=== PATIENT | male | born 1970 | race Caucasian/White ===

== ENCOUNTER → 2021-02-23 14:00 | Outpatient (CLI) | payer OTHER, SELFPAY ==
[2021-02-23 15:58] LABS: COVID19 -Nasal RAPID Negative (Negative)
== END ==
PROVIDERS: Visit Provider Physician Assistant
DX: Z01.812 Encounter for preprocedural laboratory examination (principal); Z20.822 Contact with and (suspected) exposure to COVID-19
CPT/HCPCS: 87635

== ENCOUNTER 2021-02-25 11:57 | Day surgery (SDC) | payer OTHER, SELFPAY ==
[2021-02-25] VITALS (13 sets, daily range): BP systolic 99–127; BP diastolic 67–87; PULSE 50–63; RESP 12–18; TEMP 35.9–36.5; O2SAT 95–100; BMI 25.1
--- NOTE | 2021-02-25 | PATH_ITS ---
[facility] Accession Number: [id number] . 01 Material submitted: . esophagus, E-G Junction - G-JUNCTION NODULAR . 01 Clinical history: . SDC ESOPHAGITIS . 02 Diagnosis: Gastroesophageal Junction, Nodular, Biopsy: Columnar mucosa with mild foveolar hyperplasia, consistent with hyperplastic polyp. Negative for intestinal metaplasia. Negative for dysplasia and malignancy. [facility] 03/02/2021 1442 Local . 02 Electronically signed: . Mary Ellen Ellis MD, Pathologist NPI- [id number] . 01 Gross description: . The specimen is received in formalin, labeled GE junction nodular esophagitis and consists of two osman-pink fragments of soft tissue measuring 0.4 x 0.3 x 0.2 cm in aggregate. The specimen is entirely submitted in cassette A1. ([id number]) /V 02/26/2021 1356 Local . 02 Pathologist provided ICD-10: Z12.11 . 02 CPT . 608676 Performed at: 01 [facility] [address] [id number] MD Demetrius Bolden MD Phone: [phone] Performed at: 02 [facility] [address] [place], [place] [id number] MD Mary Ellen Ellis MD Phone: [phone]
[2021-02-25] MEDS: SODIUM CHLORIDE 0.9% 1,000 ML 100 ML IV (12:33)
--- NOTE | 2021-02-25 12:38 | PM.HP.1 ---
History of Present Illness History of Present Illness Date Patient Seen: 02/25/21 Chief complaint: SDC Narrative: Abnormal PET scan showing uptake in the distal esophagus and need for colorectal cancer screening Patient History Family & Social History Social History: household members spouse Tobacco & Substance use: Smoking Status Never smoker alcohol intake current alcohol intake frequency a few times a month Substance Use Type does not use Meds Home Medications and Allergies Home Medications Medication Instructions Recorded Confirmed Type lisinopril 10 mg PO DAILY 02/25/21 02/25/21 History Allergies Allergy/AdvReac Type Severity Reaction Status Date / Time No Known Drug Allergies Allergy Verified 02/25/21 12:10 Exam Vital Signs (past 8 hours): - 02/25/21 12:23 Temperature 97.5 F L Pulse Rate 63 Respiratory Rate 16 Blood Pressure 127/87 Pulse Oximetry 95 Oxygen Delivery Method Room Air Narrative Exam Narrative: Oropharynx free of lesions Chest clear to auscultation percussion Cardiac exam reveals no S3 or murmur Assessment & Plan Assessment & Plan narrative: Abnormal PET scan done for sarcoidosis with finding of uptake in the distal esophagus rule out significant esophagitis. Need for colorectal cancer screening Risks benefits alternatives been explained. EGD and colonoscopy will be performed today.
--- NOTE | 2021-02-25 12:39 | PM.OP.ENDO ---
Operative Date/Time/Diagnoses Date of procedure: 02/25/21 Pre-op diagnosis: No more see indication and findings Procedure & Clinicians Study performed: EGD and colonoscopy Same procedure as scheduled: Yes Indications: Abnormal uptake on PET scan in distal esophagus. Need for colorectal cancer screening Surgeon: Hali Dillon Procedure Notes Procedure in detail: After informed consent was obtained the patient was placed in left lateral decubitus position. The video upper scope was placed into the oropharynx and with the patient's help swelled into the esophagus. The esophagus stomach duodenum were carefully examined. On withdrawal retroflexed view of the GE junction was performed. The scope was removed. The patient tolerated procedure well. At this point the patient was turned to the colonoscope substituted. He was introduced the rectum slowly advanced to cecum. Preparation was good. On slow withdrawal mucosa was carefully examined. The scope was removed. The patient tolerated procedure well. Blood loss none Complications none Sedation Total sedation time 24 minutes Versed 9 mg fentanyl 100 micro g IV titration Findings EGD 1. Circumferential esophagitis at the GE junction. Several areas of superficial ulceration seen. On the anterior aspect was an area that was somewhat nodular probably from reparative change. Biopsies were taken to rule out neoplasia. 2. Not evident initially but on further examination 2-3 cm sliding hiatal hernia is present 3. Otherwise negative stomach 4. Normal duodenal bulb and sweep Will specifically follow-up on the biopsies of his esophagus. In the meantime since he does have some reflux symptoms and this is so significant he should be on proton pump inhibitors for at least 2-3 months before having another upper endoscopy to check for complete healing. Colonoscopy 1. Completely normal colonoscopy to cecum with rare small diverticula and small internal hemorrhoids.
[2021-02-25] MEDS: MIDAZOLAM 5 MG/5 ML VIAL IV (13:38)
[2021-02-25] MEDS: fentaNYL 250 MCG/5 ML INJ IV (13:38)
== END 2021-02-25 15:09 | disposition home or self-care (01) ==
PROVIDERS: PCP Internal Medicine; Referring Provider Internal Medicine Gastroenterology; Visit Provider Internal Medicine Gastroenterology
PROC: 0DJ08ZZ Inspection of Upper Intestinal Tract, Via Natural or Artificial Opening Endoscopic (ICD-10-PCS; CPT 43235; principal; 2021-02-25 13:30)
PROC: 0DJD8ZZ Inspection of Lower Intestinal Tract, Via Natural or Artificial Opening Endoscopic (ICD-10-PCS; CPT 45378; 2021-02-25 13:30)
DX: Z12.11 Encounter for screening for malignant neoplasm of colon (principal); K44.9 Diaphragmatic hernia without obstruction or gangrene; K20.90 Esophagitis, unspecified without bleeding; K22.8 Other specified diseases of esophagus; K64.8 Other hemorrhoids; K57.30 Diverticulosis of large intestine without perforation or abscess without bleeding; K31.7 Polyp of stomach and duodenum
CPT/HCPCS: 43239; 45378; J2250; J3010

== ENCOUNTER → 2022-06-02 12:36 | Outpatient (CLI) | payer OTHER, SELFPAY ==
[2022-06-02 12:51] LABS: Semen Sperm Prescence Post-Vas Absent (ABSENT)
== END ==
PROVIDERS: PCP Internal Medicine; Referring Provider Urology; Visit Provider Urology
DX: Z30.2 Encounter for sterilization (principal)
CPT/HCPCS: 89321